=== PATIENT | female | born 1935 | race African-American/Black ===

== ENCOUNTER 2021-10-19 11:09 | Emergency (ER) | payer OTHER ==
[~2021-10-19] VITALS: Ht 167.6 cm; Wt 64.0 kg
[~2021-10-19 11:09] MED LIST: APIX5TAB MT; ASPI-1497 PO; ATOR20TA MT; CHOL100044 PO; MULT-1146 PO; SACU1TAB PO
[2021-10-19 12:11] LABS: BASOPHILS % 0.7 % (0.0-2.0); EOSINOPHILS % 0.5 % (0.0-5.0); HEMATOCRIT. 39.6 % (36.0-48.0); MEAN CORPUSCULAR HEMOGLOBIN 30.4 pg (28.0-32.0); MEAN CORPUSCULAR VOLUME 92.4 fL (81.0-99.0); MEAN PLATELET VOLUME 8.6 fl (7.4-10.4); MONOCYTES % 11.2 % (2.0-8.0); NEUTROPHILS % 67.6 % (40.0-76.0); PLATELET 216 x1000/uL (130-400); RED BLOOD CELL COUNT 4.28 mill/uL (4.2-5.4); RED CELL DISTRIBUTION WIDTH 15.8 % (11.6-14.6)
[2021-10-19 12:21] LABS: CHLORIDE 112 mEq/L (98-107)
[2021-10-19] MEDS ORDERED: MECLIZINE 25MG TABLET PO NR (14:00)
[2021-10-19] MEDS ORDERED: MECL-159 MT (16:08)
[2021-10-19 16:11] VITALS: BP 148/68
== END 2021-10-19 16:24 | disposition home or self-care (01) ==
LOC: ER 11:09
DX: R42 Dizziness and giddiness (principal); I25.2 Old myocardial infarction; I10 Essential (primary) hypertension; Z88.0 Allergy status to penicillin; Z88.5 Allergy status to narcotic agent; Z90.49 Acquired absence of other specified parts of digestive tract; E78.00 Pure hypercholesterolemia, unspecified; Z79.82 Long term (current) use of aspirin; Z13.9 Encounter for screening, unspecified
CPT/HCPCS: 36415; 70450; 71045; 80053; 83880; 84484; 85025; 93005; 99285; J8597

== ENCOUNTER 2021-11-21 08:02 | Inpatient (IN) | payer OTHER ==
[~2021-11-21] VITALS: Ht 160 cm; Wt 69.4 kg
[~2021-11-21 08:02] MED LIST changes: +MECL-159 MT
[2021-11-21] MEDS ORDERED: ONDANSETRON HCL 4MG/2ML INJ IV STA (08:11)
[2021-11-21] MEDS ORDERED: SODIUM CHLORIDE 0.9% 1,000 ML IV ONE (08:15)
[2021-11-21 10:50] LABS: BASOPHILS % 0.2 % (0.0-2.0); HEMATOCRIT. 35.9 % (36.0-48.0); HEMOGLOBIN. 11.9 g/dL (12.0-16.0); LYMPHOCYTES % 13.5 % (20.0-50.0); MEAN CORPUSCULAR HEMOGLOBIN 30.5 pg (28.0-32.0); MEAN CORPUSCULAR VOLUME 91.8 fL (81.0-99.0); MEAN PLATELET VOLUME 8.5 fl (7.4-10.4); MONOCYTES % 8.8 % (2.0-8.0); NEUTROPHILS % 77.5 % (40.0-76.0); PLATELET 205 x1000/uL (130-400); RED BLOOD CELL COUNT 3.91 mill/uL (4.2-5.4); RED CELL DISTRIBUTION WIDTH 15.4 % (11.6-14.6)
[2021-11-21] MEDS ORDERED: ONDANSETRON HCL 4MG/2ML INJ IV SCH (10:51)
[2021-11-21 10:54] LABS: CHLORIDE 106 mEq/L (98-107)
[2021-11-21 10:56] LABS: PROTHROMBIN TIME 11.2 sec (9.6-11.0)
[2021-11-21] MEDS ORDERED: ONDANSETRON HCL 4MG/2ML INJ IV PRN (14:45)
[2021-11-21] MEDS: DEXT 5%/0.45% NACL 1000ML 1,000 ML IV SCH ×2 (16:53→23:23)
[2021-11-21 20:00] VITALS: BP 100/43
[2021-11-21 20:07] VITALS: BP 100/43
[2021-11-21] MEDS: ACETAMINOPHEN 325MG TABLET PO PRN (23:23)
[2021-11-22] VITALS (17 sets, daily range): BP systolic 87–134; BP diastolic 31–78
[2021-11-22] MEDS ORDERED: AMIO100T4 PO (00:16)
[2021-11-22 06:34] LABS: BASOPHILS % 0.2 % (0.0-2.0); EOSINOPHILS % 0.6 % (0.0-5.0); HEMATOCRIT. 33.8 % (36.0-48.0); HEMOGLOBIN. 11.2 g/dL (12.0-16.0); LYMPHOCYTES % 16.7 % (20.0-50.0); MEAN CORPUSCULAR HEMOGLOBIN 30.2 pg (28.0-32.0); MEAN CORPUSCULAR VOLUME 91.2 fL (81.0-99.0); MONOCYTES % 9.5 % (2.0-8.0); PLATELET 194 x1000/uL (130-400); RED CELL DISTRIBUTION WIDTH 15.7 % (11.6-14.6)
[2021-11-22] MEDS ORDERED: NON FORMULARY PATIENT HOME MED XX SCH (15:15)
[2021-11-22] MEDS: APIXABAN 2.5 MG TABLET PO SCH (17:32)
[2021-11-22] MEDS: SACUBITRIL/VALSARTAN 49MG/51MG TABLET PO SCH (17:33)
[2021-11-22] MEDS: ACETAMINOPHEN 325MG TABLET PO PRN (17:33)
[2021-11-22] MEDS: DEXT 5%/0.45% NACL 1000ML 1,000 ML IV SCH (17:34)
[2021-11-22] MEDS ORDERED: HYDROCODONE/ACETAMINOPHEN 10/325MG TABLET PO PRN (19:45)
[2021-11-22] MEDS ORDERED: NALOXONE HCL 0.4MG/ML VIAL IV PRN (20:00)
[2021-11-22] MEDS ORDERED: SODIUM CHLORIDE 0.9% 500 ML IV ONE ×2 (22:00)
[2021-11-22] MEDS ORDERED: MIDODRINE HCL 5MG TABLET PO PRN (22:45)
[2021-11-22] MEDS ORDERED: CYCLOBENZAPRINE 10MG TABLET PO PRN (22:45)
[2021-11-23] VITALS (8 sets, daily range): BP systolic 93–144; BP diastolic 48–71
[2021-11-23] MEDS: DEXT 5%/0.45% NACL 1000ML 1,000 ML IV SCH (02:23)
[2021-11-23 06:34] LABS: HEMATOCRIT. 31.4 % (36.0-48.0); HEMOGLOBIN. 10.4 g/dL (12.0-16.0); MEAN CORPUSCULAR HEMOGLOBIN 30.6 pg (28.0-32.0); MEAN CORPUSCULAR VOLUME 92.8 fL (81.0-99.0); MEAN PLATELET VOLUME 9.3 fl (7.4-10.4); PLATELET 180 x1000/uL (130-400); RED BLOOD CELL COUNT 3.38 mill/uL (4.2-5.4); RED CELL DISTRIBUTION WIDTH 15.4 % (11.6-14.6)
[2021-11-23] MEDS: SACUBITRIL/VALSARTAN 49MG/51MG TABLET PO SCH ×2 (08:23→16:19)
[2021-11-23] MEDS: APIXABAN 2.5 MG TABLET PO SCH ×2 (08:23→16:19)
[2021-11-23] MEDS: ASPIRIN 81MG TABLET PO SCH (08:23)
[2021-11-23 08:31] LABS: CREATINE KINASE 154 IU/L (26-192)
[2021-11-23 10:50] LABS: CLARITY URINE CLOUDY (CLEAR); COLOR URINE DARK YELLOW (YELLOW); KETONES URINE TRACE (NEGATIVE); LEUKOCYTE ESTERASE URINE NEGATIVE (NEGATIVE); NITRITE URINE NEGATIVE (NEGATIVE); OCCULT BLOOD URINE NEGATIVE (NEGATIVE); PROTEIN URINE 1+ (NEGATIVE); SPECIFIC GRAVITY URINE 1.022 (1.005-1.030)
[2021-11-23] MEDS ORDERED: TRAMADOL 50MG TABLET PO PRN (12:00)
[2021-11-23] MEDS ORDERED: MECLIZINE 12.5MG TABLET PO PRN (12:00)
[2021-11-23] MEDS ORDERED: LIDOCAINE 5% PATCH TOP PRN (16:00)
[2021-11-23] MEDS: LIDOCAINE 5% PATCH TOP SCH (16:19)
[2021-11-23] MEDS ORDERED: GUAIFENESIN-DM 200MG-20MG/10ML UDC PO PRN (16:30)
[2021-11-23 21:03] LABS: PLATELET ESTIMATE NORMAL
[2021-11-23] MEDS ORDERED: SODIUM BICARBONATE 100 MEQ in SODIUM CHLORIDE 0.45% 1,000 ML IV SCH (23:00)
[2021-11-24] VITALS (7 sets, daily range): BP systolic 99–144; BP diastolic 48–90
[2021-11-24 06:34] LABS: BASOPHILS % 0.2 % (0.0-2.0); HEMATOCRIT. 30.7 % (36.0-48.0); HEMOGLOBIN. 10.8 g/dL (12.0-16.0); LYMPHOCYTES % 8.5 % (20.0-50.0); MEAN CORPUSCULAR HEMOGLOBIN 31.9 pg (28.0-32.0); MEAN CORPUSCULAR VOLUME 90.7 fL (81.0-99.0); MEAN PLATELET VOLUME 9.4 fl (7.4-10.4); MONOCYTES % 10.5 % (2.0-8.0); NEUTROPHILS % 80.8 % (40.0-76.0); PLATELET 176 x1000/uL (130-400); RED BLOOD CELL COUNT 3.39 mill/uL (4.2-5.4); RED CELL DISTRIBUTION WIDTH 14.9 % (11.6-14.6)
[2021-11-24] MEDS: SACUBITRIL/VALSARTAN 49MG/51MG TABLET PO SCH ×2 (09:28→16:41)
[2021-11-24] MEDS: APIXABAN 2.5 MG TABLET PO SCH ×2 (09:28→16:41)
[2021-11-24] MEDS: ASPIRIN 81MG TABLET PO SCH (09:28)
[2021-11-24] MEDS: LIDOCAINE 5% PATCH TOP SCH (09:29)
[2021-11-24 10:06] LABS: ANTI-NUCLEAR ANTIBODIES DIRECT Negative (Negative)
[2021-11-24] MEDS ORDERED: DOCUSATE SODIUM 250MG CAPSULE PO PRN (12:45)
[2021-11-24] MEDS ORDERED: LACTULOSE 20G/30ML UDC PO PRN (12:45)
[2021-11-24] MEDS ORDERED: MECL-159 MT (12:46)
[2021-11-24] MEDS ORDERED: ALBU18HF2 IH (12:46)
[2021-11-24] MEDS ORDERED: SODIUM BICARBONATE 100 MEQ in SODIUM CHLORIDE 0.45% 1,000 ML IV SCH (14:00)
== END 2021-11-24 20:05 | disposition home or self-care (01) | DRG 683 ==
LOC: ER 08:06 → 8WST 11:47 → ENRESERV 19:36
PROVIDERS: ADMIT Internal Medicine; ATTEND Internal Medicine
DX: N17.0 Acute kidney failure with tubular necrosis (principal); I13.0 Hypertensive heart and chronic kidney disease with heart failure and stage 1 through stage 4 chronic kidney disease, or unspecified chronic kidney disease; J84.9 Interstitial pulmonary disease, unspecified; I42.9 Cardiomyopathy, unspecified; N18.9 Chronic kidney disease, unspecified; I48.0 Paroxysmal atrial fibrillation; E11.22 Type 2 diabetes mellitus with diabetic chronic kidney disease; E78.00 Pure hypercholesterolemia, unspecified; I25.10 Atherosclerotic heart disease of native coronary artery without angina pectoris; R74.01 Elevation of levels of liver transaminase levels; E86.9 Volume depletion, unspecified; I50.9 Heart failure, unspecified; I35.8 Other nonrheumatic aortic valve disorders; N83.209 Unspecified ovarian cyst, unspecified side; Z88.0 Allergy status to penicillin; Z88.8 Allergy status to other drugs, medicaments and biological substances; Z90.49 Acquired absence of other specified parts of digestive tract; I25.2 Old myocardial infarction; Z79.01 Long term (current) use of anticoagulants; Z79.899 Other long term (current) drug therapy; R19.7 Diarrhea, unspecified
CPT/HCPCS: 36415; 73030; 74176; 76770; 80048; 80053; 80061; 81003; 82550; 83735; 83930; 83935; 84443; 85025; 86038; 86160; 93005; 93306; 97162; 97166; 97530; 97535; 99285; C1893; J2405; J3490; J7030